=== PATIENT | male | born 1985 ===

== ENCOUNTER 2023-09-05 19:31 | Emergency (ER) | payer BC ==
[2023-09-05] MEDS: Sodium Chloride 0.9% 1,000 ML IV STA ×3 (20:32→21:50)
[2023-09-05] MEDS: Ibuprofen 800 MG Tab PO STA (20:41)
[2023-09-05] MEDS: Acetaminophen 500 MG Tab PO STA (20:42)
[2023-09-05] MEDS: Cefepime 2 GM in Sodium Chloride 0.9% 50 ML IV STA (20:42)
[2023-09-05 20:45] LABS: BASOPHILS ABSOLUTE AUTO 0.05 K/uL (0.00-0.20); BASOPHILS PERCENT AUTO 0.8 % (0.0-1.0); EOSINOPHILS ABSOLUTE AUTO 0.08 K/uL (0.00-0.45); EOSINOPHILS PERCENT AUTO 1.2 % (0.0-6.0); HEMATOCRIT 37.4 % (42.0-52.0); HEMOGLOBIN 12.5 g/dL (14.0-18.0); IMMATURE GRAN ABSOLUTE AUTO 0.02 K/uL (0.00-0.05); IMMATURE GRAN PERCENT AUTO 0.3 % (0.0-0.4); LYMPHOCYTES ABSOLUTE AUTO 0.77 K/uL (1.00-4.80); LYMPHOCYTES PERCENT AUTO 11.6 % (24.0-44.0); MEAN CORPUSCULAR HEMOGLOBIN 23.5 pg (28.0-32.0); MEAN CORPUSCULAR HGB CONC 33.4 g/dL (32.0-36.0); MEAN CORPUSCULAR VOLUME 70.3 fL (83.0-99.0); MONOCYTES ABSOLUTE AUTO 1.12 K/uL (0.00-0.80); MONOCYTES PERCENT AUTO 16.8 % (0.0-8.0); NEUTROPHILS ABSOLUTE AUTO 4.62 K/uL (1.80-7.70); NEUTROPHILS PERCENT AUTO 69.3 % (41.0-71.0); PLATELET COUNT,PLT 136 K/uL (150-400); RED BLOOD CELL COUNT 5.32 M/uL (4.52-5.90); WHITE BLOOD CELL COUNT,WBC 6.66 K/uL (3.9-11.3)
[2023-09-05 20:50] LABS: CORONAVIRUS COVID-19 NAA NEGATIVE (NEGATIVE); INFLUENZA A NAA POSITIVE (NEGATIVE); INFLUENZA B NAA NEGATIVE (NEGATIVE)
[2023-09-05] MEDS: Sodium Chloride 0.9% 2.5 ML Syringe FLUSH PRN (20:52)
[2023-09-05] MEDS: Sodium Chloride 0.9% 10 ML Syringe FLUSH PRN (20:53)
[2023-09-05 21:03] LABS: A/G RATIO 0.9 (0.9-1.6); ALBUMIN 3.7 g/dL (3.4-5.0); BILIRUBIN TOTAL 0.5 mg/dL (0.2-1.0); CALCIUM 8.9 mg/dL (8.5-10.1); CREATININE 2.4 mg/dL (0.8-1.3); EST CRCL DRUG DOSING (CG) 37.29 mL/min; POTASSIUM,K 3.3 mmol/L (3.5-5.1); PROTEIN TOTAL,TP 7.9 g/dL (6.4-8.2)
[2023-09-05 21:06] LABS: LACTIC ACID 0.7 mmol/L (0.4-2.0); MAGNESIUM 1.9 mg/dL (1.8-2.4)
[2023-09-05] MEDS: Potassium Chloride 20 MEQ Tab.ER PO STA (21:51)
== END 2023-09-05 23:22 | disposition home or self-care (01) ==
LOC: MW.ED 19:31
DX: J10.1 Influenza due to other identified influenza virus with other respiratory manifestations (principal); D69.6 Thrombocytopenia, unspecified; N28.89 Other specified disorders of kidney and ureter; I10 Essential (primary) hypertension; J98.59 Other diseases of mediastinum, not elsewhere classified; Z88.8 Allergy status to other drugs, medicaments and biological substances
CPT/HCPCS: 0240U; 36415; 71046; 80053; 83605; 83690; 83735; 84484; 85025; 87040; 96361; 96365; 99284; A9270; J0692; J3490; J7030; 93010; 99283